=== PATIENT | female | born 1965 | race Caucasian/White ===

== ENCOUNTER → 2023-08-28 13:44 | Outpatient (REF) | payer OTHER, SELFPAY | LOC: HWRAD 13:44 | PROVIDERS: ATTENDING PHYSICIAN Internal Medicine Gastroenterology; FAMILY PHYSICIAN Internal Medicine | DX: R10.9 Unspecified abdominal pain (principal) | CPT/HCPCS: 74177; Q9967 ==

== ENCOUNTER → 2024-09-25 11:53 | Outpatient (REF) | payer OTHER, SELFPAY | LOC: HWRAD 11:53 | PROVIDERS: ATTENDING PHYSICIAN Internal Medicine; FAMILY PHYSICIAN Internal Medicine | DX: M25.532 Pain in left wrist (principal) | CPT/HCPCS: 73110 ==

== ENCOUNTER → 2024-12-01 13:31 | Outpatient (REF) | payer OTHER, SELFPAY | LOC: HWRAD 13:31 | PROVIDERS: ATTENDING PHYSICIAN Chiropractor; FAMILY PHYSICIAN Internal Medicine | DX: M54.2 Cervicalgia (principal); M54.6 Pain in thoracic spine | CPT/HCPCS: 72050; 72072 ==